=== PATIENT | female | born 1970 | race Caucasian/White ===

== ENCOUNTER 2022-08-22 11:32 | Emergency (ER) | payer MEDICAID ==
[~2022-08-22] VITALS: Ht 167.6 cm; Wt 70.0 kg
[2022-08-22 12:44] LABS: BASOPHILS % (AUTO) 0.4 % (0-1); EOSINOPHILS % (AUTO) 0.1 % (0-6); HEMATOCRIT 40.9 % (35.0-45.0); HEMOGLOBIN 13.8 g/dl (12.0-16.0); LYMPHOCYTES # (AUTO) 0.9 X10'3 (1.1-4.8); LYMPHOCYTES % (AUTO) 12.3 % (21-51); MEAN CORPUSCULAR HEMOGLOBIN 32.2 PG (27.0-31.0); MEAN CORPUSCULAR HGB CONC 33.8 g/dL (33.0-36.5); MEAN CORPUSCULAR VOLUME 95.3 FL (78-98); MEAN PLATELET VOLUME 7.2 FL (7.4-10.4); MONOCYTES # (AUTO) 0.5 X10'3 (0-0.9); MONOCYTES % (AUTO) 7.3 % (2-12); NEUTROPHILS # (AUTO) 5.7 X10'3 (1.8-7.7); NEUTROPHILS % (AUTO) 79.9 % (42-75); PLATELET COUNT 127 X10'3 (140-440); RED BLOOD COUNT 4.29 X10'6 (4.20-5.60); RED CELL DISTRIBUTION WIDTH 19.5 % (11.5-14.5); WHITE BLOOD COUNT 7.1 X10'3 (4.5-11.0)
[2022-08-22 13:06] LABS: ALANINE AMINOTRANSFERASE 71 U/L (12-78); ALBUMIN/GLOBULIN RATIO 0.7 (1.1-1.5); ALKALINE PHOSPHATASE 212 IU/L (46-116); ANION GAP 11 (8-16); ASPARTATE AMINO TRANSFERASE 280 U/L (10-37); BILIRUBIN,TOTAL 1.5 MG/DL (0.1-1.0); BLOOD UREA NITROGEN 5 MG/DL (7-18); BUN/CREATININE RATIO 11.1 (6.6-38.0); CALCIUM 8.4 MG/DL (8.5-10.1); CHLORIDE 95 MMOL/L (99-107); CREATININE 0.45 MG/DL (0.40-0.90); GLUCOSE 115 MG/DL (70-104); SODIUM 140 MMOL/L (135-145); TOTAL CARBON DIOXIDE 34.3 MMOL/L (24-32); TOTAL PROTEIN 7.5 G/DL (6.4-8.2); eGFR > 90 ML/MIN
[2022-08-22 13:14] LABS: POTASSIUM 2.8 MMOL/L (3.5-5.1)
[2022-08-22] MEDS ORDERED: POTASSIUM BICARB 20meq eff tab 20 MEQ TABLET.EFF PO ONE (14:00)
[2022-08-22 14:21] LABS: APTT 28 SECONDS (22-32)
[2022-08-22] MEDS ORDERED: dexamethasone sod phosphate 10mg/ml inj PO STA (14:24)
[2022-08-22] MEDS ORDERED: albuterol 2.5 MG/3 ML nebule NEB ONE (14:25)
[2022-08-22 14:55] LABS: ANISOCYTOSIS 2+; PLATELET ESTIMATE DECREASED
[2022-08-22] MEDS ORDERED: ALBU8HFA PO (15:01)
[2022-08-22] MEDS ORDERED: AZIT-83 PO (16:01)
[2022-08-22] MEDS ORDERED: BECL7.3A INH (16:01)
[2022-08-22] MEDS ORDERED: PRED20TA PO (16:01)
[2022-08-22 16:47] VITALS: BP 145/86
== END 2022-08-22 16:00 | disposition home or self-care (01) ==
LOC: ER 11:33
DX: J40 Bronchitis, not specified as acute or chronic (principal); E87.6 Hypokalemia; R74.01 Elevation of levels of liver transaminase levels; F17.210 Nicotine dependence, cigarettes, uncomplicated; Z79.899 Other long term (current) drug therapy
CPT/HCPCS: 36415; 71045; 80053; 83880; 84484; 85008; 85025; 85610; 85730; 93005; 94640; 99285; J1100; 94760

== ENCOUNTER 2023-02-01 04:34 | Emergency (ER) | payer MEDICAID ==
[~2023-02-01] VITALS: Ht 167.6 cm; Wt 66.8 kg
[~2023-02-01 04:34] MED LIST: BECL7.3A INH; BUDE10.27 IH; LORA-269 PO
[2023-02-01 04:47] VITALS: BP 117/57
== END 2023-02-01 08:44 | disposition left against medical advice (07) ==
LOC: ER 04:35
DX: F10.10 Alcohol abuse, uncomplicated (principal); Z53.21 Procedure and treatment not carried out due to patient leaving prior to being seen by health care provider; Y90.9 Presence of alcohol in blood, level not specified
CPT/HCPCS: 82948; 99281

== ENCOUNTER 2024-01-22 15:03 | Inpatient (IN) | payer MEDICAID ==
[~2024-01-22] VITALS: Ht 167.6 cm; Wt 70.0 kg
[2024-01-22 15:37] LABS: BASOPHILS % (AUTO) 0.1 % (0-1); EOSINOPHILS % (AUTO) 0.1 % (0-6); HEMATOCRIT 25.3 % (35.0-45.0); HEMOGLOBIN 8.2 g/dl (12.0-16.0); LYMPHOCYTES # (AUTO) 0.6 X10'3 (1.1-4.8); LYMPHOCYTES % (AUTO) 6.4 % (21-51); MEAN CORPUSCULAR HEMOGLOBIN 28.5 PG (27.0-31.0); MEAN CORPUSCULAR HGB CONC 32.5 g/dL (33.0-36.5); MEAN CORPUSCULAR VOLUME 87.8 FL (78-98); MEAN PLATELET VOLUME 8.7 FL (7.4-10.4); MONOCYTES # (AUTO) 0.8 X10'3 (0-0.9); MONOCYTES % (AUTO) 7.8 % (2-12); NEUTROPHILS # (AUTO) 8.5 X10'3 (1.8-7.7); NEUTROPHILS % (AUTO) 85.6 % (42-75); PLATELET COUNT 178 X10'3 (140-440); RED BLOOD COUNT 2.88 X10'6 (4.20-5.60); RED CELL DISTRIBUTION WIDTH 22.1 % (11.5-14.5); WHITE BLOOD COUNT 9.9 X10'3 (4.5-11.0)
[2024-01-22 15:46] LABS: APTT 27 SECONDS (22-32); INR 1.3 INR; PROTHROMBIN TIME 13.9 SECONDS (9.0-12.0)
[2024-01-22] MEDS: metoclopramide 5 mg/ml inj IV ONE (15:52)
[2024-01-22] MEDS: LORazepam 2 mg/ml vial IV ONE ×4 (15:52→23:38)
[2024-01-22] MEDS: diphenhydrAMINE 50 mg/ml inj IV ONE (15:53)
[2024-01-22] MEDS: normal saline 1000ml 1,000 ML IV ONE ×3 (15:58→22:16)
[2024-01-22 16:10] LABS: ALANINE AMINOTRANSFERASE 48 U/L (12-78); ALBUMIN 2.2 G/DL (3.4-5.0); ALBUMIN/GLOBULIN RATIO 0.6 (1.1-1.5); ALKALINE PHOSPHATASE 290 IU/L (46-116); ANION GAP 14 (8-16); ASPARTATE AMINO TRANSFERASE 203 U/L (10-37); BILIRUBIN,TOTAL 3.3 MG/DL (0.1-1.0); BLOOD UREA NITROGEN 4 MG/DL (7-18); BUN/CREATININE RATIO 4.9 (10.0-20.0); CHLORIDE 85 MMOL/L (99-107); CREATININE 0.82 MG/DL (0.40-0.90); ETHANOL < 10 MG/DL (<10); GLUCOSE 102 MG/DL (70-104); SODIUM 136 MMOL/L (135-145); TOTAL PROTEIN 5.8 G/DL (6.4-8.2); eCRCL 76 ML/MIN; eGFR 73 ML/MIN
[2024-01-22 16:13] LABS: PLATELET ESTIMATE NORMAL; POLYCHROMASIA 1+
[2024-01-22 16:15] LABS: ANISOCYTOSIS 3+; HYPOCHROMASIA 1+
[2024-01-22 16:20] LABS: POTASSIUM 2.5 MMOL/L (3.5-5.1)
[2024-01-22 16:58] LABS: MAGNESIUM 0.4 MG/DL (1.5-2.4)
[2024-01-22 17:33] LABS: PHOSPHORUS 3.8 MG/DL (2.3-4.5)
[2024-01-22] MEDS: calcium carbonate/vitamin D3 tablet PO SCH (19:10)
[2024-01-22 19:18] LABS: URINE AMPHETAMINE SCREEN NEGATIVE (Neg); URINE BARBITUATE SCREEN NEGATIVE (Neg); URINE BENZODIAZEPINES SCREEN POSITIVE (Neg); URINE CANNABINOID SCREEN POSITIVE (Neg); URINE COCAINE SCREEN NEGATIVE (Neg); URINE METHADONE SCREEN NEGATIVE (Neg); URINE OPIATE SCREEN NEGATIVE (Neg); URINE PHENCYCLIDINE SCREEN NEGATIVE (Neg)
[2024-01-22] MEDS: potassium bicarbonate/cit acid 25mEq tablet.effervescent PO SCH (19:23)
[2024-01-22 20:13] LABS: CLARITY,URINE SLIGHTLY CLOUDY (Clear); COLOR,URINE DARK YELLOW (Yellow); UA COLLECTION TYPE STRAIGHT CATH
[2024-01-22 20:14] LABS: GLUCOSE, URINE 100 mg/dl (Neg); KETONES,URINE TRACE mg/dl (Neg); PH,URINE 6.5 (4.8-8.0); PROTEIN,URINE 30 mg/dl (Neg)
[2024-01-22 20:15] LABS: BILIRUBIN,URINE LARGE (Neg); LEUKOCYTE ESTERASE ,URINE NEGATIVE (Neg); NITRITES, URINE NEGATIVE (Neg); OCCULT BLOOD,URINE NEGATIVE (Neg)
[2024-01-22 20:19] LABS: BACTERIA,URINE FEW /HPF (Neg); MUCUS STRANDS FEW /LPF (Neg); RBC,URINE 0-2 /HPF (0-2); SQUAMOUS EPITHELIAL CELL,UR FEW /LPF (FEW); TRANSITIONAL EPI CELLS,URINE MODERATE /HPF; WBC,URINE 0-4 /HPF (0-4)
[2024-01-22 20:20] LABS: AMORPHOUS PHOSPHATES 1+; RENAL CELLS, URINE FEW /HPF
[2024-01-22 20:21] LABS: FINE GRANULAR CAST 0-3 /LPF (NEGATIVE)
[2024-01-22] MEDS ORDERED: ondansetron/PF 4mg/2ml inj IV PRN (21:35)
[2024-01-22] MEDS ORDERED: acetaminophen 325mg tablet PO PRN (21:35)
[2024-01-22 22:04] LABS: LIPASE 19 U/L (16-77)
[2024-01-22] MEDS: normal saline 1000ml 1,000 ML IV SCH (22:23)
[2024-01-22] MEDS: pantoprazole 40 MG vial IV SCH (23:43)
[2024-01-23] VITALS (9 sets, daily range): BP systolic 106–131; BP diastolic 66–77; PULSE 57–109; RESP 16–20; TEMP 98.1–98.6; O2SAT 90–99
[2024-01-23] MEDS: magnesium Cl slow-release 64mg tablet PO PRN (00:28)
[2024-01-23] MEDS ORDERED: dicyclomine 10 MG capsule PO PRN (01:50)
[2024-01-23] MEDS ORDERED: loperamide 2mg capsule PO PRN (01:50)
[2024-01-23] MEDS ORDERED: haloperidol lactate 5mg/ml inj IM PRN (01:50)
[2024-01-23] MEDS ORDERED: dextrose 50%-water 50ml dispensing syringe IV PRN (01:55)
[2024-01-23] MEDS: folic acid 1mg/0.2ml inj IV SCH (02:40)
[2024-01-23] MEDS: thiamine 100mg/ml 2ml inj. IV SCH (02:40)
[2024-01-23 04:37] LABS: ALANINE AMINOTRANSFERASE 54 U/L (12-78); ALBUMIN 2.2 G/DL (3.4-5.0); ALKALINE PHOSPHATASE 281 IU/L (46-116); AMYLASE 21 U/L (25-115); ANION GAP 8 (8-16); ASPARTATE AMINO TRANSFERASE 225 U/L (10-37); BASOPHILS % (AUTO) 0.4 % (0-1); BILIRUBIN,TOTAL 4.3 MG/DL (0.1-1.0); BLOOD UREA NITROGEN 3 MG/DL (7-18); BUN/CREATININE RATIO 3.4 (10.0-20.0); CHLORIDE 93 MMOL/L (99-107); CREATININE 0.87 MG/DL (0.40-0.90); EOSINOPHILS % (AUTO) 0.2 % (0-6); GLUCOSE 83 MG/DL (70-104); HEMATOCRIT 27.1 % (35.0-45.0); HEMOGLOBIN 8.5 g/dl (12.0-16.0); LYMPHOCYTES # (AUTO) 0.8 X10'3 (1.1-4.8); LYMPHOCYTES % (AUTO) 9.6 % (21-51); MEAN CORPUSCULAR HEMOGLOBIN 27.9 PG (27.0-31.0); MEAN CORPUSCULAR HGB CONC 31.4 g/dL (33.0-36.5); MEAN PLATELET VOLUME 8.9 FL (7.4-10.4); MONOCYTES # (AUTO) 0.7 X10'3 (0-0.9); NEUTROPHILS # (AUTO) 6.7 X10'3 (1.8-7.7); NEUTROPHILS % (AUTO) 81.8 % (42-75); PLATELET COUNT 165 X10'3 (140-440); RED BLOOD COUNT 3.04 X10'6 (4.20-5.60); RED CELL DISTRIBUTION WIDTH 22.4 % (11.5-14.5); SODIUM 141 MMOL/L (135-145); TOTAL CARBON DIOXIDE 39.7 MMOL/L (24-32); WHITE BLOOD COUNT 8.2 X10'3 (4.5-11.0); eCRCL 72 ML/MIN; eGFR 69 ML/MIN
[2024-01-23 04:40] LABS: ALBUMIN/GLOBULIN RATIO 0.6 (1.1-1.5); PHOSPHORUS 3.6 MG/DL (2.3-4.5); TOTAL PROTEIN 5.8 G/DL (6.4-8.2)
[2024-01-23 04:42] LABS: POTASSIUM 2.8 MMOL/L (3.5-5.1)
[2024-01-23 04:43] LABS: MAGNESIUM 0.6 MG/DL (1.5-2.4)
[2024-01-23] MEDS: magnesium 4gm in 100ml NS 100 ML IV PRN (04:59)
[2024-01-23] MEDS: potassium Cl 40MEQ/1/2NS 520ml 520 ML IV PRN (05:36)
[2024-01-23] MEDS: K and/or MAG REPLACEMENT MC SCH (08:00)
[2024-01-23] MEDS: nicotine 21mg patch - 24 hr TD SCH (08:00)
[2024-01-23] MEDS: polymyxin B sulf/tmp ophth drops 10ml EACHEYE SCH (08:00)
[2024-01-23] MEDS ORDERED: heparin, porcine 5000 units/ml vial SQ SCH (08:00)
[2024-01-23] MEDS: magnesium 2GM in 50ml NS 50 ML IV PRN (08:36)
[2024-01-23] MEDS: albuterol 2.5 MG/3 ML nebule NEB SCH (09:00)
[2024-01-23] MEDS: budesonide 0.5mg/2ml UD nebule IH SCH (09:00)
[2024-01-23 09:40] LABS: INR 1.3 INR; PROTHROMBIN TIME 13.9 SECONDS (9.0-12.0)
[2024-01-23 09:43] LABS: IRON 48 UG/DL (49-151)
[2024-01-23 09:44] LABS: % IRON SATURATION 17 % (11-46); TOTAL IRON BINDING CAPACITY 288 UG/DL (259-388)
[2024-01-23] MEDS: multivitamins, therapeutics tablet PO SCH (13:44)
[2024-01-23] MEDS: heparin, porcine 5000 units/ml vial SQ SCH (13:46)
[2024-01-23] MEDS ORDERED: BUDE10.22 PO (14:55)
[2024-01-23 15:03] LABS: POTASSIUM 2.1 MMOL/L (3.5-5.1)
[2024-01-23] MEDS: potassium Cl 20 mEq SR tablet PO PRN (15:14)
[2024-01-23] MEDS: calcium carbonate 500mg tablet PO SCH (17:54)
[2024-01-23] MEDS ORDERED: NICOTINE POLACRILEX 2 MG LOZENGE BC PRN (18:20)
[2024-01-23] MEDS: LORazepam 2 mg/ml vial IV PRN (21:42)
[2024-01-24] VITALS (13 sets, daily range): BP systolic 112–132; BP diastolic 61–84; PULSE 78–104; RESP 16–23; TEMP 97.3–98.6; O2SAT 87–97
[2024-01-24 07:16] LABS: BASOPHILS % (AUTO) 0.4 % (0-1); EOSINOPHILS % (AUTO) 0.6 % (0-6); HEMATOCRIT 22.6 % (35.0-45.0); HEMOGLOBIN 7.2 g/dl (12.0-16.0); LYMPHOCYTES # (AUTO) 0.7 X10'3 (1.1-4.8); LYMPHOCYTES % (AUTO) 8.6 % (21-51); MEAN CORPUSCULAR HEMOGLOBIN 28.4 PG (27.0-31.0); MEAN CORPUSCULAR HGB CONC 31.8 g/dL (33.0-36.5); MEAN CORPUSCULAR VOLUME 89.4 FL (78-98); MEAN PLATELET VOLUME 8.5 FL (7.4-10.4); MONOCYTES # (AUTO) 0.6 X10'3 (0-0.9); MONOCYTES % (AUTO) 7.1 % (2-12); NEUTROPHILS # (AUTO) 6.5 X10'3 (1.8-7.7); NEUTROPHILS % (AUTO) 83.3 % (42-75); PLATELET COUNT 172 X10'3 (140-440); RED BLOOD COUNT 2.53 X10'6 (4.20-5.60); RED CELL DISTRIBUTION WIDTH 21.8 % (11.5-14.5); WHITE BLOOD COUNT 7.9 X10'3 (4.5-11.0)
[2024-01-24 07:26] LABS: INR 1.3 INR; PROTHROMBIN TIME 13.8 SECONDS (9.0-12.0)
[2024-01-24 07:35] LABS: ALANINE AMINOTRANSFERASE 47 U/L (12-78); ALBUMIN 1.8 G/DL (3.4-5.0); ALBUMIN/GLOBULIN RATIO 0.5 (1.1-1.5); ALKALINE PHOSPHATASE 254 IU/L (46-116); AMYLASE 17 U/L (25-115); ANION GAP 3 (8-16); ASPARTATE AMINO TRANSFERASE 212 U/L (10-37); BILIRUBIN,TOTAL 3.5 MG/DL (0.1-1.0); BLOOD UREA NITROGEN 2 MG/DL (7-18); BUN/CREATININE RATIO 3.4 (10.0-20.0); CHLORIDE 97 MMOL/L (99-107); CREATININE 0.59 MG/DL (0.40-0.90); GLUCOSE 88 MG/DL (70-104); LIPASE 20 U/L (16-77); MAGNESIUM 1.4 MG/DL (1.5-2.4); PHOSPHORUS 1.7 MG/DL (2.3-4.5); SODIUM 138 MMOL/L (135-145); TOTAL CARBON DIOXIDE 37.7 MMOL/L (24-32); TOTAL PROTEIN 5.1 G/DL (6.4-8.2); eCRCL 106 ML/MIN; eGFR > 90 ML/MIN
[2024-01-24 07:37] LABS: CALCIUM 5.6 MG/DL (8.5-10.1); POTASSIUM 2.5 MMOL/L (3.5-5.1)
[2024-01-24] MEDS: potassium Cl 20 mEq SR tablet PO PRN (08:08)
[2024-01-24] MEDS ORDERED: haloperidol lactate 5mg/ml inj IM PRN (10:30)
[2024-01-24] MEDS: folic acid 1mg tablet PO SCH (10:30)
[2024-01-24] MEDS: calcium carbonate 500mg tablet PO SCH (13:00)
[2024-01-24] MEDS: pantoprazole 40mg Tablet.DR PO SCH (21:03)
[2024-01-24] MEDS: thiamine 100mg tablet PO SCH (21:03)
[2024-01-24 21:52] LABS: POTASSIUM 3.5 MMOL/L (3.5-5.1)
[2024-01-25] VITALS (14 sets, daily range): BP systolic 103–119; BP diastolic 51–70; PULSE 82–103; RESP 16–22; TEMP 97.3–98.8; O2SAT 90–96
[2024-01-25] MEDS ORDERED: LORazepam 1 MG tablet PO PRN (01:50)
[2024-01-25] MEDS: LORazepam 1 MG tablet PO PRN (07:14)
[2024-01-25 07:30] LABS: BASOPHILS % (AUTO) 0.4 % (0-1); EOSINOPHILS % (AUTO) 0.6 % (0-6); HEMATOCRIT 22.7 % (35.0-45.0); LYMPHOCYTES # (AUTO) 0.9 X10'3 (1.1-4.8); LYMPHOCYTES % (AUTO) 12.2 % (21-51); MEAN CORPUSCULAR HEMOGLOBIN 27.9 PG (27.0-31.0); MEAN CORPUSCULAR HGB CONC 30.9 g/dL (33.0-36.5); MEAN CORPUSCULAR VOLUME 90.5 FL (78-98); MEAN PLATELET VOLUME 8.7 FL (7.4-10.4); MONOCYTES # (AUTO) 0.6 X10'3 (0-0.9); MONOCYTES % (AUTO) 8.5 % (2-12); NEUTROPHILS # (AUTO) 5.7 X10'3 (1.8-7.7); NEUTROPHILS % (AUTO) 78.3 % (42-75); PLATELET COUNT 176 X10'3 (140-440); RED CELL DISTRIBUTION WIDTH 22.3 % (11.5-14.5); WHITE BLOOD COUNT 7.3 X10'3 (4.5-11.0)
[2024-01-25 07:36] LABS: INR 1.2 INR; PROTHROMBIN TIME 13.2 SECONDS (9.0-12.0)
[2024-01-25 07:55] LABS: ALANINE AMINOTRANSFERASE 48 U/L (12-78); ALBUMIN 1.8 G/DL (3.4-5.0); ALBUMIN/GLOBULIN RATIO 0.5 (1.1-1.5); ALKALINE PHOSPHATASE 270 IU/L (46-116); AMYLASE 21 U/L (25-115); ANION GAP 3 (8-16); ASPARTATE AMINO TRANSFERASE 217 U/L (10-37); BILIRUBIN,TOTAL 3.4 MG/DL (0.1-1.0); BLOOD UREA NITROGEN 1 MG/DL (7-18); CALCIUM 6.6 MG/DL (8.5-10.1); CHLORIDE 97 MMOL/L (99-107); CREATININE 0.49 MG/DL (0.40-0.90); GLUCOSE 99 MG/DL (70-104); LIPASE 29 U/L (16-77); MAGNESIUM 1.6 MG/DL (1.5-2.4); PHOSPHORUS 1.8 MG/DL (2.3-4.5); POTASSIUM 3.7 MMOL/L (3.5-5.1); SODIUM 135 MMOL/L (135-145); TOTAL CARBON DIOXIDE 35.2 MMOL/L (24-32); TOTAL PROTEIN 5.2 G/DL (6.4-8.2); eCRCL 127 ML/MIN; eGFR > 90 ML/MIN
[2024-01-25 08:56] LABS: PLATELET ESTIMATE NORMAL; POLYCHROMASIA 1+; STOMATOCYTES 1+
[2024-01-25 08:57] LABS: ANISOCYTOSIS 3+; HYPOCHROMASIA 1+
[2024-01-25] MEDS ORDERED: LORazepam 2 mg/ml vial IV PRN ×2 (11:40→15:50)
[2024-01-25] MEDS: LORazepam 0.5 MG tablet PO PRN ×2 (11:47→15:57)
[2024-01-25 22:21] LABS: HEMATOCRIT 23.4 % (35.0-45.0); HEMOGLOBIN 7.3 g/dl (12.0-16.0); MEAN CORPUSCULAR HEMOGLOBIN 28.4 PG (27.0-31.0); MEAN CORPUSCULAR HGB CONC 31.1 g/dL (33.0-36.5); MEAN CORPUSCULAR VOLUME 91.5 FL (78-98); MEAN PLATELET VOLUME 8.8 FL (7.4-10.4); PLATELET COUNT 187 X10'3 (140-440); RED BLOOD COUNT 2.56 X10'6 (4.20-5.60); WHITE BLOOD COUNT 8.3 X10'3 (4.5-11.0)
[2024-01-26] VITALS (17 sets, daily range): BP systolic 105–135; BP diastolic 52–75; PULSE 82–97; RESP 16–24; TEMP 97.3–98.4; O2SAT 92–100
[2024-01-26 06:42] LABS: BASOPHILS % (AUTO) 0.3 % (0-1); EOSINOPHILS # (AUTO) 0.1 X10'3 (0-0.9); EOSINOPHILS % (AUTO) 0.7 % (0-6); HEMATOCRIT 23.1 % (35.0-45.0); HEMOGLOBIN 7.3 g/dl (12.0-16.0); LYMPHOCYTES # (AUTO) 0.8 X10'3 (1.1-4.8); LYMPHOCYTES % (AUTO) 9.8 % (21-51); MEAN CORPUSCULAR HEMOGLOBIN 28.9 PG (27.0-31.0); MEAN CORPUSCULAR HGB CONC 31.7 g/dL (33.0-36.5); MONOCYTES # (AUTO) 0.9 X10'3 (0-0.9); MONOCYTES % (AUTO) 10.9 % (2-12); NEUTROPHILS # (AUTO) 6.6 X10'3 (1.8-7.7); NEUTROPHILS % (AUTO) 78.3 % (42-75); PLATELET COUNT 194 X10'3 (140-440); RED BLOOD COUNT 2.53 X10'6 (4.20-5.60); RED CELL DISTRIBUTION WIDTH 22.7 % (11.5-14.5); WHITE BLOOD COUNT 8.5 X10'3 (4.5-11.0)
[2024-01-26 06:53] LABS: ALANINE AMINOTRANSFERASE 47 U/L (12-78); ALBUMIN/GLOBULIN RATIO 0.6 (1.1-1.5); ALKALINE PHOSPHATASE 287 IU/L (46-116); AMYLASE 28 U/L (25-115); ANION GAP 3 (8-16); ASPARTATE AMINO TRANSFERASE 204 U/L (10-37); BILIRUBIN,TOTAL 3.3 MG/DL (0.1-1.0); BLOOD UREA NITROGEN 2 MG/DL (7-18); BUN/CREATININE RATIO 3.3 (10.0-20.0); CALCIUM 7.7 MG/DL (8.5-10.1); CHLORIDE 97 MMOL/L (99-107); GLUCOSE 94 MG/DL (70-104); LIPASE 44 U/L (16-77); MAGNESIUM 1.3 MG/DL (1.5-2.4); PHOSPHORUS 2.5 MG/DL (2.3-4.5); POTASSIUM 4.9 MMOL/L (3.5-5.1); SODIUM 130 MMOL/L (135-145); TOTAL CARBON DIOXIDE 29.9 MMOL/L (24-32); TOTAL PROTEIN 5.6 G/DL (6.4-8.2); eCRCL 104 ML/MIN; eGFR > 90 ML/MIN
[2024-01-26 07:08] LABS: INR 1.2 INR; PROTHROMBIN TIME 12.6 SECONDS (9.0-12.0)
[2024-01-26] MEDS ORDERED: potassium Cl 20 mEq SR tablet PO PRN ×2 (11:05)
[2024-01-26] MEDS ORDERED: magnesium 2GM in 50ml NS 50 ML IV PRN (11:05)
[2024-01-26] MEDS ORDERED: potassium Cl 40MEQ/1/2NS 520ml 520 ML IV PRN (11:05)
[2024-01-26] MEDS: magnesium Cl slow-release 64mg tablet PO PRN (11:16)
[2024-01-26] MEDS: acetaminophen 325mg tablet PO PRN (17:39)
[2024-01-26] MEDS: K and/or MAG REPLACEMENT MC SCH (20:05)
[2024-01-27] VITALS (19 sets, daily range): BP systolic 110–130; BP diastolic 60–80; PULSE 74–92; RESP 14–21; TEMP 97–98.3; O2SAT 94–98
[2024-01-27] MEDS ORDERED: LORazepam 1 MG tablet PO PRN (01:50)
[2024-01-27 05:47] LABS: BASOPHILS % (AUTO) 0.6 % (0-1); EOSINOPHILS # (AUTO) 0.1 X10'3 (0-0.9); HEMATOCRIT 23.6 % (35.0-45.0); HEMOGLOBIN 7.2 g/dl (12.0-16.0); LYMPHOCYTES % (AUTO) 12.5 % (21-51); MEAN CORPUSCULAR HEMOGLOBIN 28.6 PG (27.0-31.0); MEAN CORPUSCULAR HGB CONC 30.7 g/dL (33.0-36.5); MEAN CORPUSCULAR VOLUME 93.3 FL (78-98); MONOCYTES # (AUTO) 0.9 X10'3 (0-0.9); MONOCYTES % (AUTO) 10.7 % (2-12); NEUTROPHILS # (AUTO) 6.1 X10'3 (1.8-7.7); NEUTROPHILS % (AUTO) 75.2 % (42-75); PLATELET COUNT 212 X10'3 (140-440); RED BLOOD COUNT 2.53 X10'6 (4.20-5.60); WHITE BLOOD COUNT 8.1 X10'3 (4.5-11.0)
[2024-01-27 05:57] LABS: INR 1.2 INR; PROTHROMBIN TIME 12.3 SECONDS (9.0-12.0)
[2024-01-27 06:12] LABS: ALANINE AMINOTRANSFERASE 50 U/L (12-78); ALBUMIN 1.9 G/DL (3.4-5.0); ALBUMIN/GLOBULIN RATIO 0.5 (1.1-1.5); ALKALINE PHOSPHATASE 263 IU/L (46-116); AMYLASE 31 U/L (25-115); ANION GAP 4 (8-16); ASPARTATE AMINO TRANSFERASE 171 U/L (10-37); BILIRUBIN,TOTAL 2.8 MG/DL (0.1-1.0); BLOOD UREA NITROGEN 4 MG/DL (7-18); BUN/CREATININE RATIO 6.7 (10.0-20.0); CALCIUM 8.4 MG/DL (8.5-10.1); CHLORIDE 100 MMOL/L (99-107); GLUCOSE 97 MG/DL (70-104); LIPASE 38 U/L (16-77); MAGNESIUM 1.4 MG/DL (1.5-2.4); PHOSPHORUS 4.1 MG/DL (2.3-4.5); POTASSIUM 4.7 MMOL/L (3.5-5.1); SODIUM 134 MMOL/L (135-145); TOTAL CARBON DIOXIDE 30.5 MMOL/L (24-32); TOTAL PROTEIN 5.6 G/DL (6.4-8.2); eCRCL 104 ML/MIN; eGFR > 90 ML/MIN
[2024-01-27 07:25] LABS: ANISOCYTOSIS 3+; PLATELET ESTIMATE NORMAL; POIKILOCYTOSIS FEW; POLYCHROMASIA FEW; STOMATOCYTES 2+
[2024-01-27] MEDS: potassium bicarbonate/cit acid 25mEq tablet.effervescent PO SCH (08:00)
[2024-01-28] VITALS (10 sets, daily range): BP systolic 105–119; BP diastolic 56–71; PULSE 76–86; RESP 14–20; TEMP 97.3–98.8; O2SAT 95–98
[2024-01-28] MEDS: magnesium 4gm in 100ml NS 100 ML IV PRN (00:39)
[2024-01-28 06:29] LABS: MAGNESIUM 2.4 MG/DL (1.5-2.4)
[2024-01-28] MEDS ORDERED: MULT-25 PO (10:28)
[2024-01-28] MEDS ORDERED: PANT40TA54 PO (10:28)
[2024-01-28] MEDS ORDERED: thiamine tablet PO (10:28)
[2024-01-28] MEDS ORDERED: NICO-907 BC (10:28)
[2024-01-28] MEDS ORDERED: FOLI1TAB27 PO (10:28)
[2024-01-28] MEDS ORDERED: FERR324T4 PO (17:01)
== END 2024-01-28 11:40 | disposition home or self-care (01) | DRG 775 ==
LOC: ER 15:04 → ED HOLD 21:46 → EDBEDREQ 01-23 00:22 → PCU 3S 01-23 09:26
PROVIDERS: ADMIT Surgery Surgical Critical Care; ATTEND Internal Medicine
DX: F10.239 Alcohol dependence with withdrawal, unspecified (principal); E83.51 Hypocalcemia; E87.1 Hypo-osmolality and hyponatremia; F17.210 Nicotine dependence, cigarettes, uncomplicated; E87.6 Hypokalemia; F41.9 Anxiety disorder, unspecified; E83.42 Hypomagnesemia; D64.9 Anemia, unspecified; Z79.51 Long term (current) use of inhaled steroids; Z79.899 Other long term (current) drug therapy
CPT/HCPCS: 36415; 70450; 71045; 76700; 80053; 80305; 80320; 81001; 82150; 83540; 83550; 83690; 83735; 83970; 84100; 84132; 84484; 85008; 85025; 85027; 85610; 85730; 87081; 87811; 93005; 94640; 94664; 94668; 94760; 96374; 96375; 97116; 97161; 97530; 99291; A6449; A6455; C1758; C9113; G0378; J1200; J1644; J2060; J2765; J3411; J3475; J3480; J3490; J7030

== ENCOUNTER 2024-02-04 08:02 | Emergency (ER) | payer MEDICAID ==
[~2024-02-04] VITALS: Ht 170.2 cm; Wt 70.4 kg
[~2024-02-04 08:02] MED LIST changes: -BECL7.3A INH; +BUDE10.22 PO; -BUDE10.27 IH; +FERR324T4 PO; +FOLI1TAB27 PO; -LORA-269 PO; +MULT-25 PO; +NICO-907 BC; +PANT40TA54 PO; +thiamine tablet PO
[2024-02-04 08:23] VITALS: TEMP 97.3
[2024-02-04 11:36] VITALS: BP 120/65; PULSE 73; RESP 16; O2SAT 98
== END 2024-02-04 11:37 | disposition home or self-care (01) ==
LOC: ER 08:03
DX: M79.89 Other specified soft tissue disorders (principal); F10.10 Alcohol abuse, uncomplicated; F12.90 Cannabis use, unspecified, uncomplicated; Z79.899 Other long term (current) drug therapy; Y90.9 Presence of alcohol in blood, level not specified
CPT/HCPCS: 76937; 93971; 99284